=== PATIENT | male | born 1955 | race Hispanic/Latino ===

== ENCOUNTER → 2019-01-10 | Outpatient (CLI) | payer MEDICARE | END | disposition home or self-care (01) | LOC: RAH 10:54 | PROVIDERS: ATTEND Family Medicine | DX: M13.831 Other specified arthritis, right wrist (principal) | CPT/HCPCS: 73110 ==

== ENCOUNTER 2019-06-10 02:10 | Inpatient (IN) | payer MEDICARE ==
[~2019-06-10] VITALS: Ht 167.6 cm; Wt 84.0 kg
[2019-06-10] VITALS (18 sets, daily range): BP systolic 105–184; BP diastolic 62–122
[2019-06-10 02:52] LABS: BASOPHILS % (AUTO) 0.7 % (0.0-5.0); HEMATOCRIT 46.4 % (42-54); MEAN CORPUSCULAR HEMOGLOBIN 30.9 pg (27.0-33.0); MEAN CORPUSCULAR HGB CONC 34.2 g/dL (32.0-36.0); MEAN CORPUSCULAR VOLUME 90.4 fL (79-99); MONOCYTES % (AUTO) 10.7 % (3.0-13.0); NEUTROPHILS % (AUTO) 74.6 % (40.0-77.0); NUCLEATED RED BLOOD CELLS 0.1 % (0.0-0.19); PLATELET COUNT (AUTO) 197 K/uL (130-400); RED BLOOD CELL COUNT(AUTO) 5.13 MIL/uL (4.50-6.20); WHITE BLOOD COUNT (AUTO) 12.6 K/uL (4.8-10.8)
[2019-06-10 03:11] LABS: ALBUMIN 3.6 g/dL (3.5-5.0); BILIRUBIN,TOTAL 0.7 mg/dL (0.2-1.0); CREATININE 1.2 mg/dL (0.5-1.5); POTASSIUM 3.7 mmol/L (3.5-5.1); TOTAL PROTEIN, SERUM 8.1 g/dL (6.0-8.3)
[2019-06-10 03:14] LABS: APPEARANCE,URINE Clear (CLEAR); BILIRUBIN,URINE Negative (NEGATIVE); COLOR,URINE Yellow (YELLOW); GLUCOSE, URINE (UA) >=1000 mg/dL (NEGATIVE); KETONES,URINE Negative (NEGATIVE); LEUKOCYTE ESTERASE ,URINE Negative (NEGATIVE); NITRATE,URINE Negative (NEGATIVE); OCCULT BLOOD,URINE Negative (NEGATIVE); PH,URINE 6.5 (5.0-8.0); PROTEIN,URINE Negative (NEGATIVE)
[2019-06-10 03:19] LABS: INR 0.97 (0.85-1.15); PARTIAL THROMBOPLASTIN TIME 27.4 SEC (26.3-35.5); PROTHROMBIN TIME 10.2 SEC (9.6-11.6)
[2019-06-10] MEDS ORDERED: METRONIDAZOLE 500MG/100ML BAG 100 ML ONE (03:46)
[2019-06-10] MEDS ORDERED: LEVOFLOXACIN 500 MG/D5W 100 ML 100 ML ONE (03:46)
[2019-06-10] MEDS ORDERED: INSULIN HUMULIN R 100 UNIT/ML 3ML ONE (03:47)
[2019-06-10] MEDS ORDERED: SODIUM CHLORIDE 0.9% 1000ML 1,000 ML IV ONE (03:48)
[2019-06-10] MEDS ORDERED: KETOROLAC TROMETHAMINE 30MG/ML ONE (04:38)
[2019-06-10] MEDS ORDERED: ONDANSETRON HCL 4 MG/2 ML VIAL IVP PRN (05:45)
[2019-06-10] MEDS ORDERED: MORPHINE SULFATE 2 MG/ML 1ML SYG IVP PRN (05:45)
[2019-06-10] MEDS ORDERED: VANCOMYCIN PROTOCOL PER PHARMACY IV SCH (05:45)
[2019-06-10] MEDS ORDERED: VANCOMYCIN 1GM+NS 250ML 250 ML IV SCH (06:00)
[2019-06-10] MEDS: ZOSYN 3.375GM+NS 50ML 50 ML IV SCH ×2 (06:00→14:00)
[2019-06-10] MEDS ORDERED: ZOSYN 3.375GM+NS 50ML 50 ML IV ONE (07:15)
[2019-06-10] MEDS ORDERED: VANCOMYCIN 1GM+NS 250ML 250 ML IV ONE (08:07)
[2019-06-10] MEDS ORDERED: KETAMINE 50MG/ML SYRINGE 50 MG/ML DISP.SYRIN IV ONE (11:42)
[2019-06-10] MEDS ORDERED: PROPOFOL 10 MG/ML 20ML VIAL IV ONE (11:44)
[2019-06-10] MEDS ORDERED: MIDAZOLAM HCL 1 MG/ML 2ML VIAL ONE (11:56)
[2019-06-10] MEDS ORDERED: GLYCOPYRROLATE 1 MG/5 ML SYRINGE ONE (11:56)
[2019-06-10] MEDS ORDERED: ONDANSETRON HCL 4 MG/2 ML VIAL ONE (11:57)
[2019-06-10] MEDS ORDERED: LIDOCAINE 1%-EPI 1:100,000 20 ML VIAL IJ ONE (12:09)
[2019-06-10] MEDS: SODIUM CHLORIDE 0.9% 1000ML 1,000 ML IV SCH ×2 (12:24→12:30)
--- NOTE | 2019-06-10 13:05 | NUR ---
POST PROCEDURE RECEIVED PT FROM PACU, IN SEMI PIZANO'S POSITION, A&OX3, CALM COOPERATIVE AND DOES NOT APPEAR TO BE IN ANY DISTRESS NOR ANY NEURO DEFICITS PRESENT. PT DENIES PAIN, SOB, NAUSEA. DRESSING TO BUTTOCKS DRY AND INTACT. PT RESTING COMFORTABLY, CALL LIGHT WITHIN REACH, FAMILY AT BEDSIDE.
[2019-06-10] MEDS ORDERED: ACETAMINOPHEN 325 MG TAB ONE (15:24)
[2019-06-10] MEDS ORDERED: PHARMACY COMMUNICATION MISC SCH (15:45)
[2019-06-10] MEDS ORDERED: GABA-531 PO (15:53)
[2019-06-10] MEDS ORDERED: PIOG45TA64 PO (15:53)
[2019-06-10] MEDS ORDERED: CYCL10TA7 PO (15:53)
[2019-06-10] MEDS ORDERED: METF-446 PO (15:53)
[2019-06-10] MEDS ORDERED: DAPA5TAB PO (15:53)
[2019-06-10] MEDS ORDERED: CANA300T PO (15:53)
[2019-06-10] MEDS ORDERED: LISI10TA7 PO (15:53)
[2019-06-10] MEDS ORDERED: EMPA25TA PO (15:53)
[2019-06-10] MEDS ORDERED: MIDO5TAB PO (15:53)
[2019-06-10] MEDS ORDERED: TAMS-1 PO (15:53)
[2019-06-10] MEDS ORDERED: MELO-108 PO (15:53)
[2019-06-10] MEDS ORDERED: CLOP75TA32 PO (15:53)
[2019-06-10] MEDS ORDERED: GLIP5TAB11 PO (15:53)
[2019-06-10] MEDS ORDERED: COMPOUND IV REFRIGERATED 1 EACH IVSOLN MISC PRN (16:45)
[2019-06-10] MEDS ORDERED: ACETAMINOPHEN 325 MG TAB PO PRN ×2 (16:45)
[2019-06-10] MEDS: METFORMIN HCL 500 MG TABLET PO SCH (16:59)
--- NOTE | 2019-06-10 17:00 | NUR ---
TRANSFER TO 3RD FLOOR ROOM 309, REPORT CALLED TO NIC CROWE,
[2019-06-10] MEDS: INSULIN HUMULIN R 100 UNIT/ML 3ML SQ PRN (17:01)
--- NOTE | 2019-06-10 17:46 | NUR ---
PT TRANSFER UPDATE Pt transfer from 228 to 309, pt on the floor at 1745, pt s/p I&D by Dr. Rodrigues, Vitals stable, pt comfortable in bed, family at bedside, Nursing will continue to monitor.
[2019-06-10] MEDS ORDERED: GABAPENTIN 300 MG CAPSULE ONE (19:59)
[2019-06-10] MEDS: GABAPENTIN 300 MG CAPSULE PO SCH (20:59)
[2019-06-10] MEDS: VANCOMYCIN 1.25 GM in SODIUM CHLORIDE 0.9% 250 ML IV SCH (21:13)
[2019-06-11] MEDS: ZOSYN 3.375GM+NS 50ML 50 ML IV SCH ×3 (00:06→14:13)
[2019-06-11 03:56] VITALS: BP 117/61
[2019-06-11] MEDS: SODIUM CHLORIDE 0.9% 1000ML 1,000 ML IV SCH (05:43)
[2019-06-11 06:00] LABS: BASOPHILS % (AUTO) 0.2 % (0.0-5.0); EOSINOPHILS % (AUTO) 0.7 % (0.0-8.0); HEMATOCRIT 40.6 % (42-54); LYMPHOCYTES % (AUTO) 9.8 % (21.0-51.0); MEAN CORPUSCULAR HEMOGLOBIN 31.1 pg (27.0-33.0); MEAN CORPUSCULAR HGB CONC 34.6 g/dL (32.0-36.0); MONOCYTES % (AUTO) 8.5 % (3.0-13.0); NEUTROPHILS % (AUTO) 80.8 % (40.0-77.0); PLATELET COUNT (AUTO) 162 K/uL (130-400); RED BLOOD CELL COUNT(AUTO) 4.51 MIL/uL (4.50-6.20); RED CELL DISTRIBUTION WIDTH 12.9 % (11.0-15.5); WHITE BLOOD COUNT (AUTO) 12.4 K/uL (4.8-10.8)
[2019-06-11 06:07] LABS: HEMOGLOBIN A1C 11.5 % (4.0-6.0)
[2019-06-11 06:19] LABS: ALBUMIN 2.6 g/dL (3.5-5.0); BILIRUBIN,TOTAL 1.2 mg/dL (0.2-1.0); CREATININE 1.1 mg/dL (0.5-1.5); MAGNESIUM 1.3 mg/dL (1.80-2.40); PHOSPHORUS 2.5 mg/dL (2.5-4.9); POTASSIUM 3.8 mmol/L (3.5-5.1); TOTAL PROTEIN, SERUM 6.5 g/dL (6.0-8.3)
[2019-06-11 06:22] LABS: INR 1.09 (0.85-1.15); PARTIAL THROMBOPLASTIN TIME 29.1 SEC (26.3-35.5); PROTHROMBIN TIME 11.4 SEC (9.6-11.6)
[2019-06-11 06:56] LABS: B-TYPE NATRIURETIC PEPTIDE 96 pg/mL (0-100)
[2019-06-11 07:00] VITALS: BP 114/72
[2019-06-11] MEDS: VANCOMYCIN 1.25 GM in SODIUM CHLORIDE 0.9% 250 ML IV SCH ×2 (09:00→21:01)
[2019-06-11] MEDS: GABAPENTIN 300 MG CAPSULE PO SCH ×3 (09:52→21:02)
[2019-06-11] MEDS: LISINOPRIL 10 MG TABLET PO SCH (09:53)
[2019-06-11] MEDS: TAMSULOSIN HCL 0.4 MG CAP.ER.24H PO SCH (09:53)
[2019-06-11] MEDS: METFORMIN HCL 500 MG TABLET PO SCH ×2 (09:53→16:48)
[2019-06-11 11:00] VITALS: BP 138/74
[2019-06-11] MEDS ORDERED: POTASSIUM CHLORIDE 20MEQ/100ML 100 ML IV PRN (11:00)
[2019-06-11] MEDS ORDERED: POTASSIUM CHLORIDE 20 MEQ ERTAB PO PRN (11:00)
[2019-06-11] MEDS: MAGNESIUM 2GM PREMIX 50ML 50 ML IV PRN (11:19)
[2019-06-11] MEDS: INSULIN HUMULIN R 100 UNIT/ML 3ML SQ PRN ×3 (12:19→20:33)
[2019-06-11] MEDS: POTASSIUM CHLORIDE 10% ELIXIR 20 MEQ/15 ML UDCUP PO PRN ×2 (15:40→17:41)
[2019-06-11 16:00] VITALS: BP 138/75
--- NOTE | 2019-06-11 17:14 | NUR ---
INITIAL: Met with pt and spouse this afternoon to discuss dcp. Pt mentions that he lives w spouse, son and grandchild. Prior to admission he was using a walker for ambulation. Requires assistance w ADLs. Has provider services 20 1/2hr per week. Pt states that he feels safe and comfortable to return home at [facility]. states if needed she is willing to learn dressing changes. CM to continue to follow and wait for Md recommendations. Addendum: 06/11/19 at 1721 by ANDRÉS BALL CM Amended: Links added.
[2019-06-11 19:49] VITALS: BP 131/67
[2019-06-11] MEDS: INSULIN GLARGINE 100 UNITS/ML 10 ML VIAL SQ SCH (20:30)
[2019-06-11] MEDS ORDERED: SODIUM CHLORIDE 0.9% 250 ML IV ONE (20:56)
[2019-06-12] VITALS (7 sets, daily range): BP systolic 113–143; BP diastolic 74–97
[2019-06-12] MEDS: ZOSYN 3.375GM+NS 50ML 50 ML IV SCH ×4 (00:47→22:30)
[2019-06-12 05:11] LABS: BASOPHILS % (AUTO) 0.7 % (0.0-5.0); EOSINOPHILS % (AUTO) 1.9 % (0.0-8.0); HEMATOCRIT 37.6 % (42-54); LYMPHOCYTES % (AUTO) 17.4 % (21.0-51.0); MEAN CORPUSCULAR HEMOGLOBIN 31.9 pg (27.0-33.0); MEAN CORPUSCULAR HGB CONC 35.2 g/dL (32.0-36.0); MEAN CORPUSCULAR VOLUME 90.6 fL (79-99); MONOCYTES % (AUTO) 10.3 % (3.0-13.0); NEUTROPHILS % (AUTO) 69.7 % (40.0-77.0); PLATELET COUNT (AUTO) 173 K/uL (130-400); RED BLOOD CELL COUNT(AUTO) 4.14 MIL/uL (4.50-6.20); RED CELL DISTRIBUTION WIDTH 12.9 % (11.0-15.5); WHITE BLOOD COUNT (AUTO) 9.7 K/uL (4.8-10.8)
[2019-06-12 05:23] LABS: CREATININE 1.1 mg/dL (0.5-1.5); MAGNESIUM 1.6 mg/dL (1.80-2.40); POTASSIUM 3.8 mmol/L (3.5-5.1)
[2019-06-12] MEDS: INSULIN HUMULIN R 100 UNIT/ML 3ML SQ PRN ×3 (06:03→17:00)
[2019-06-12] MEDS: MAGNESIUM 2GM PREMIX 50ML 50 ML IV PRN (06:20)
[2019-06-12] MEDS: POTASSIUM CHLORIDE 10% ELIXIR 20 MEQ/15 ML UDCUP PO PRN (06:23)
[2019-06-12] MEDS ORDERED: MAGNESIUM 2GM PREMIX 50ML 50 ML IV PRN (08:30)
[2019-06-12] MEDS: GABAPENTIN 300 MG CAPSULE PO SCH ×3 (08:48→21:39)
[2019-06-12] MEDS: LISINOPRIL 10 MG TABLET PO SCH (08:48)
[2019-06-12] MEDS: VANCOMYCIN 1.25 GM in SODIUM CHLORIDE 0.9% 250 ML IV SCH ×2 (08:48→21:44)
[2019-06-12] MEDS: METFORMIN HCL 500 MG TABLET PO SCH ×2 (08:48→16:57)
[2019-06-12] MEDS: TAMSULOSIN HCL 0.4 MG CAP.ER.24H PO SCH (08:48)
--- NOTE | 2019-06-12 10:13 | NUR ---
DYSPHAGIA EVAL COMPLETED. -S/S OF ASPIRATION, DIFFICULTY TAKING PILLS. RECOMMEND REGULAR TEXTURE, THIN LIQUIDS; PILLS WHOLE WITH THIN LIQUIDS USING CHIN TUCK. Addendum: 06/12/19 at 1015 by BREE AYALA, [facility] Amended: Links added.
--- NOTE | 2019-06-12 14:53 | NUR ---
[facility] consult Spoke with patient's nurse, Joey CROWE, regarding wound care consult for surgeon (Dr. Rodrigues) not for C. May re-consult [facility] if needed.
--- NOTE | 2019-06-12 15:00 | NUR ---
REFERRAL TO [facility] REQUESTED / ORDER AND PT REQUEST PKT SENT,PASSR SENT, DIONISIO CALLED, CAME TO EVALUATE Addendum: 06/14/19 at 1801 by ELSA TUCKER RN CM Amended: Links added.
[2019-06-12] MEDS: INSULIN GLARGINE 100 UNITS/ML 10 ML VIAL SQ SCH (21:34)
[2019-06-12] MEDS: INSULIN HUMULIN R 100 UNIT/ML 3ML SQ SCH (21:35)
[2019-06-12] MEDS ORDERED: SODIUM CHLORIDE 0.9% 250 ML IV ONE (22:17)
[2019-06-13 03:50] VITALS: BP 109/63
[2019-06-13] MEDS: ZOSYN 3.375GM+NS 50ML 50 ML IV SCH ×2 (05:27→14:11)
[2019-06-13] MEDS: INSULIN HUMULIN R 100 UNIT/ML 3ML SQ SCH ×3 (06:54→16:30)
[2019-06-13 07:00] VITALS: BP 136/80
[2019-06-13] MEDS: METFORMIN HCL 500 MG TABLET PO SCH ×2 (09:09→17:07)
[2019-06-13] MEDS: TAMSULOSIN HCL 0.4 MG CAP.ER.24H PO SCH (09:10)
[2019-06-13] MEDS: GABAPENTIN 300 MG CAPSULE PO SCH ×2 (09:10→14:11)
[2019-06-13] MEDS: LISINOPRIL 10 MG TABLET PO SCH (09:10)
[2019-06-13] MEDS: VANCOMYCIN 1.25 GM in SODIUM CHLORIDE 0.9% 250 ML IV SCH (09:17)
[2019-06-13 11:00] VITALS: BP 132/77
--- NOTE | 2019-06-13 13:35 | NUR ---
DR BAUM AT BEDSIDE "NO SNF' PER DR. BAUM, REFERRAL CANCELLED, PT AMRITA MIN, FOR HEMAL AWARE Addendum: 06/14/19 at 1803 by ELSA TUCKER RN CM Amended: Links added.
[2019-06-13 16:00] VITALS: BP 134/78
[2019-06-13] MEDS ORDERED: CEPH750C9 PO (16:51)
--- NOTE | 2019-06-13 18:40 | NUR ---
WOUND CARE EDUCATION WAS PERFORMED BY DEMONSTRATION AND THE WAS ENCOURAGED TO RETURN DEMONSTRATION AND SHE DID IT WITHOUT DIFFICULTY. AND SHE VERBALIZED CLEAR UNDERSTANDING WITH CONFIDENCE THAT SHE CAN PERFORM THE TASK AT HOME. IV ACCESSES WERE REMOVED WITHOUT COMPLICATION. ALL DISCHARGE INSTRUCTIONS WERE GIVEN TO THE PATIENT AND HIS AT THE BEDSIDE WHO VOICED UNDERSTANDING. PATIENT LEFT THE UNIT IN STABLE CONDITION VIA WHEELCHAIR IN CARE OF SPOUSE.
== END 2019-06-13 19:00 | disposition home or self-care (01) | DRG 854 ==
LOC: EDH 02:10 → EDHIP 05:15 → OBSVTOIN 05:15 → 2DH 13:42 → 3BH 17:30
PROVIDERS: ADMIT Internal Medicine; ATTEND Internal Medicine
PROC: 0D9P0ZZ Drainage of Rectum, Open Approach (ICD-10-PCS; principal; 2019-06-10 12:00)
DX: A41.9 Sepsis, unspecified organism (principal); K61.1 Rectal abscess; E11.9 Type 2 diabetes mellitus without complications; E66.9 Obesity, unspecified; I10 Essential (primary) hypertension; I25.10 Atherosclerotic heart disease of native coronary artery without angina pectoris; N40.0 Benign prostatic hyperplasia without lower urinary tract symptoms; Z79.82 Long term (current) use of aspirin; Z79.899 Other long term (current) drug therapy; Z86.73 Personal history of transient ischemic attack (TIA), and cerebral infarction without residual deficits; Z91.19 Patient's noncompliance with other medical treatment and regimen; Z68.29 Body mass index [BMI] 29.0-29.9, adult; I25.2 Old myocardial infarction
CPT/HCPCS: 36415; 72192; 76870; 80048; 80053; 80061; 80202; 81003; 82550; 82948; 83036; 83605; 83735; 83880; 84100; 84484; 85025; 85610; 85730; 87040; 87070; 87076; 87205; 87880; 92610; 93005; A6266; G0378; J1815; J1885; J1956; J2250; J2405; J2543; J2704; J3370; J3475; J3490; J7030

== ENCOUNTER → 2019-08-15 | Outpatient (CLI) | payer OTHER ==
[~2019-08-15] MED LIST: CANA300T PO; CEPH750C9 PO; CLOP75TA32 PO; CYCL10TA7 PO; DAPA5TAB PO; EMPA25TA PO; GABA-531 PO; GLIP5TAB11 PO; LISI10TA7 PO; MELO-108 PO; METF-446 PO; PIOG45TA64 PO; REGADENOSON 0.4 MG/5 ML PF SYG IVP SCH; TAMS-1 PO
== END | disposition home or self-care (01) ==
LOC: CANPRECLI → SHCH 09:55
PROVIDERS: ATTEND Internal Medicine Cardiovascular Disease
DX: I25.10 Atherosclerotic heart disease of native coronary artery without angina pectoris (principal)
CPT/HCPCS: 78452; 93017; 96374; A9500 ×2

== ENCOUNTER → 2019-08-16 | Outpatient (CLI) | payer OTHER ==
[~2019-08-16] MED LIST changes: -REGADENOSON 0.4 MG/5 ML PF SYG IVP SCH
--- NOTE | 2019-08-16 11:00 | NUR ---
MBSS COMPLETED. SHALLOW TRANSIENT PENETRATION WITH THIN LIQUIDS VIA CONSECUTIVE CUP SIP. RECOMMEND REGULAR TEXTURE, THIN LIQUIDS; PILLS WHOLE WITH LIQUIDS. RECOMMENDATIONS: 1. GI CONSULT; PLEASE CONSIDER UPPER GI. Addendum: 08/16/19 at 1325 by BREE AYALA, [facility] Amended: Links added.
== END | disposition home or self-care (01) ==
LOC: RAH 10:34
PROVIDERS: ATTEND Family Medicine
DX: I69.391 Dysphagia following cerebral infarction (principal); K21.9 Gastro-esophageal reflux disease without esophagitis
CPT/HCPCS: 74230; 92611

== ENCOUNTER → 2020-03-13 | Outpatient (CLI) | payer OTHER | END | disposition home or self-care (01) | LOC: RAH 10:51 | PROVIDERS: ATTEND Internal Medicine Gastroenterology | DX: K31.84 Gastroparesis (principal) | CPT/HCPCS: 78264; A9541 ==

== ENCOUNTER → 2020-12-30 | Outpatient (CLI) | payer OTHER ==
[~2020-12-30] MED LIST changes: +LISI10TA24 PO; -LISI10TA7 PO
== END | disposition home or self-care (01) ==
LOC: SHCH 15:55
PROVIDERS: ATTEND Internal Medicine Cardiovascular Disease
DX: I51.7 Cardiomegaly (principal)
CPT/HCPCS: 93306; 93356

== ENCOUNTER → 2021-01-02 | Outpatient (CLI) | payer OTHER ==
[~2021-01-02] VITALS: Ht 172.7 cm; Wt 79.4 kg
[~2021-01-02] MED LIST changes: +REGADENOSON 0.4 MG/5 ML PF SYG IVP SCH
== END | disposition home or self-care (01) ==
LOC: SHCH 10:00
PROVIDERS: ATTEND Internal Medicine Cardiovascular Disease
DX: R06.00 Dyspnea, unspecified (principal); I25.10 Atherosclerotic heart disease of native coronary artery without angina pectoris
CPT/HCPCS: 78452; 93017; 96374; A9500 ×2

== ENCOUNTER 2021-08-26 15:01 | Emergency (ER) | payer OTHER ==
[~2021-08-26] VITALS: Ht 165.1 cm; Wt 80.7 kg
[~2021-08-26 15:01] MED LIST changes: +CYCL-309 PO; -CYCL10TA7 PO; -REGADENOSON 0.4 MG/5 ML PF SYG IVP SCH
[2021-08-26] MEDS ORDERED: ACETAMINOPHEN 500 MG TABLET PO ONE (15:30)
[2021-08-26 15:42] LABS: BASOPHILS % (AUTO) 0.7 % (0.0-5.0); EOSINOPHILS % (AUTO) 1.8 % (0.0-8.0); HEMATOCRIT 45.4 % (42-54); LYMPHOCYTES % (AUTO) 23.7 % (21.0-51.0); MEAN CORPUSCULAR HEMOGLOBIN 30.4 pg (27.0-33.0); MEAN CORPUSCULAR HGB CONC 34.6 g/dL (32.0-36.0); MONOCYTES % (AUTO) 8.6 % (3.0-13.0); PLATELET COUNT (AUTO) 232 K/uL (130-400); RED BLOOD CELL COUNT(AUTO) 5.16 MIL/uL (4.50-6.20); RED CELL DISTRIBUTION WIDTH 12.9 % (11.0-15.5); WHITE BLOOD COUNT (AUTO) 8.7 K/uL (4.8-10.8)
[2021-08-26 15:53] LABS: APPEARANCE,URINE Clear (CLEAR); BILIRUBIN,URINE Negative (NEGATIVE); COLOR,URINE Yellow (YELLOW); GLUCOSE, URINE (UA) Negative (NEGATIVE); KETONES,URINE Negative (NEGATIVE); LEUKOCYTE ESTERASE ,URINE Negative (NEGATIVE); NITRATE,URINE Negative (NEGATIVE); OCCULT BLOOD,URINE Negative (NEGATIVE); PH,URINE 5.5 (5.0-8.0); PROTEIN,URINE Trace mg/dL (NEGATIVE)
[2021-08-26 16:01] LABS: BACTERIA,URINE None Seen /HPF (None Seen); MUCUS,URINE None Seen LPF (None Seen); RBC,URINE 0-1 /HPF (0-1); SQUAMOUS EPITHELIAL CELL,UR 0-2 /HPF (0-2); WBC,URINE 0-1 /HPF (0-1)
[2021-08-26 16:02] LABS: CARBON DIOXIDE 33 mmol/L (21-32); CHLORIDE 101 mmol/L (101-111); CREATININE 1.1 mg/dL (0.5-1.5); GLOMERULAR FILTR. RATE CALC 72 mL/min (>60); GLUCOSE,RANDOM 122 mg/dL (70-105); POTASSIUM 4.3 mmol/L (3.5-5.1); SODIUM SERUM 139 mmol/L (136-145); UREA NITROGEN, BLOOD 14 mg/dL (7-18)
[2021-08-26 16:14] LABS: ALANINE AMINOTRANSFERASE 34 U/L (12-78); ALBUMIN 3.9 g/dL (3.5-5.0); ASPARTATE AMINOTRANSFERASE 29 U/L (10-37); BILIRUBIN,TOTAL 0.5 mg/dL (0.2-1.0); TOTAL PROTEIN, SERUM 8.8 g/dL (6.0-8.3)
[2021-08-26 16:28] LABS: CRP QUANTITATIVE < 2.00 mg/L (0.00-9.0)
[2021-08-26 18:22] VITALS: BP 163/95
[2021-08-26] MEDS ORDERED: CYCLOBENZAPRINE HCL 10 MG TABLET ONE (18:50)
[2021-08-26] MEDS ORDERED: CYCL10TA16 PO (18:51)
[2021-08-26] MEDS ORDERED: ACET-2247 PO (18:52)
[2021-08-26] MEDS ORDERED: DEXAMETHASONE 4 MG TAB PO SCH (19:00)
[2021-08-26] MEDS ORDERED: CYCLOBENZAPRINE HCL 10 MG TABLET PO ONE (19:00)
== END 2021-08-26 19:05 | disposition home or self-care (01) ==
LOC: EDH 15:01
DX: M62.421 Contracture of muscle, right upper arm (principal); M62.838 Other muscle spasm; R51.9 Headache, unspecified; E11.9 Type 2 diabetes mellitus without complications; I25.10 Atherosclerotic heart disease of native coronary artery without angina pectoris
CPT/HCPCS: 36415; 70450; 71045; 72125; 72141; 80053; 81001; 82948; 84484; 85025; 86140

== ENCOUNTER 2021-12-25 12:40 | Observation (INO) | payer OTHER ==
[~2021-12-25] VITALS: Ht 165.1 cm; Wt 79.7 kg
[~2021-12-25 12:40] MED LIST changes: +ACET-2247 PO; +CYCL10TA16 PO
[2021-12-25 13:07] LABS: BASOPHILS % (AUTO) 0.6 % (0.0-5.0); EOSINOPHILS % (AUTO) 1.6 % (0.0-8.0); LYMPHOCYTES % (AUTO) 22.3 % (21.0-51.0); MEAN CORPUSCULAR HGB CONC 34.1 g/dL (32.0-36.0); MONOCYTES % (AUTO) 8.7 % (3.0-13.0); NEUTROPHILS % (AUTO) 66.6 % (40.0-77.0); PLATELET COUNT (AUTO) 202 K/uL (130-400); RED BLOOD CELL COUNT(AUTO) 5.23 MIL/uL (4.50-6.20); RED CELL DISTRIBUTION WIDTH 13.2 % (11.0-15.5); WHITE BLOOD COUNT (AUTO) 8.4 K/uL (4.8-10.8)
[2021-12-25] MEDS ORDERED: ASPIRIN 81MG CHEW TAB ONE (13:10)
[2021-12-25] MEDS ORDERED: NITROGLYCERIN 1GM OINT 1 INCH/1GM TD ONE (13:10)
[2021-12-25 13:16] LABS: CREATININE 1.1 mg/dL (0.5-1.5); POTASSIUM 4.1 mmol/L (3.5-5.1)
[2021-12-25 13:21] LABS: ALBUMIN 3.6 g/dL (3.5-5.0); BILIRUBIN,TOTAL 0.5 mg/dL (0.2-1.0); TOTAL PROTEIN, SERUM 7.8 g/dL (6.0-8.3)
[2021-12-25] MEDS ORDERED: ASPIRIN 81MG CHEW TAB PO SCH (13:30)
[2021-12-25] MEDS ORDERED: NITROGLYCERIN 1GM OINT 1 INCH/1GM TD SCH (13:30)
[2021-12-25 13:42] LABS: APPEARANCE,URINE Clear (CLEAR); BILIRUBIN,URINE Negative (NEGATIVE); COLOR,URINE Yellow (YELLOW); GLUCOSE, URINE (UA) Negative (NEGATIVE); KETONES,URINE Negative (NEGATIVE); LEUKOCYTE ESTERASE ,URINE Negative (NEGATIVE); NITRATE,URINE Negative (NEGATIVE); OCCULT BLOOD,URINE Negative (NEGATIVE); PROTEIN,URINE Negative (NEGATIVE)
[2021-12-25] MEDS ORDERED: ACETAMINOPHEN 325 MG TAB PO PRN (16:30)
[2021-12-25] MEDS ORDERED: ACETAMINOPHEN 650 MG SUPPOSITORY RC PRN (16:30)
[2021-12-25] MEDS ORDERED: ONDANSETRON 4MG INJ IVP PRN (16:30)
[2021-12-25] MEDS ORDERED: CLONIDINE HCL 0.1 MG TABLET PO PRN (16:30)
[2021-12-25] MEDS ORDERED: LACTULOSE 20 GM/30 ML UDCUP PO PRN (16:30)
[2021-12-25] MEDS: INSULIN HUMULIN R 100 UNIT/ML 3ML SQ SCH ×2 (16:30→21:00)
[2021-12-25 16:55] LABS: AMPHET/METH SCREEN,URINE NEGATIVE (NEGATIVE); BARBITURATE SCREEN, URINE NEGATIVE (NEGATIVE); BENZODIAZEPINES SCREEN,URINE NEGATIVE (NEGATIVE); CANNABINOID SCREEN,URINE NEGATIVE (NEGATIVE); COCAINE SCREEN,URINE NEGATIVE (NEGATIVE); OPIATE SCREEN,URINE NEGATIVE (NEGATIVE); PHENCYCLIDINE SCREEN,URINE NEGATIVE (NEGATIVE)
[2021-12-25 16:58] LABS: HEMOGLOBIN A1C 7.1 % (4.0-6.0)
[2021-12-25] MEDS: IPRATROPIUM/ALBUTEROL SULFATE 3 ML SOLUTION IH SCH ×2 (19:27→23:32)
[2021-12-25 23:15] VITALS: BP 144/74
[2021-12-25] MEDS: MORPHINE 2 MG SYG IVP PRN (23:40)
[2021-12-26] MEDS: IPRATROPIUM/ALBUTEROL SULFATE 3 ML SOLUTION IH SCH ×3 (02:33→11:13)
[2021-12-26] MEDS: MORPHINE 2 MG SYG IVP PRN (04:28)
[2021-12-26 05:02] VITALS: BP 127/70
[2021-12-26 05:20] LABS: BASOPHILS % (AUTO) 0.5 % (0.0-5.0); HEMATOCRIT 42.1 % (42-54); LYMPHOCYTES % (AUTO) 15.2 % (21.0-51.0); MEAN CORPUSCULAR HGB CONC 34.2 g/dL (32.0-36.0); MEAN CORPUSCULAR VOLUME 87.7 fL (79-99); MONOCYTES % (AUTO) 8.4 % (3.0-13.0); NEUTROPHILS % (AUTO) 74.6 % (40.0-77.0); PLATELET COUNT (AUTO) 187 K/uL (130-400); RED CELL DISTRIBUTION WIDTH 13.2 % (11.0-15.5); WHITE BLOOD COUNT (AUTO) 11.9 K/uL (4.8-10.8)
[2021-12-26 05:47] LABS: B-TYPE NATRIURETIC PEPTIDE 29 pg/mL (0-100)
[2021-12-26 05:50] LABS: MAGNESIUM 1.8 mg/dL (1.80-2.40); PHOSPHORUS 4.4 mg/dL (2.5-4.9); POTASSIUM 3.8 mmol/L (3.5-5.1)
[2021-12-26] MEDS: INSULIN HUMULIN R 100 UNIT/ML 3ML SQ SCH ×2 (06:22→10:59)
[2021-12-26 08:00] VITALS: BP 120/73
[2021-12-26] MEDS ORDERED: PANTOPRAZOLE 40 MG TAB DR PO SCH (09:00)
[2021-12-26] MEDS ORDERED: LISINOPRIL 20 MG TABLET PO SCH (09:00)
[2021-12-26] MEDS ORDERED: ENOXAPARIN SODIUM 40 MG/0.4 ML SYRINGE SQ SCH (09:00)
[2021-12-26] MEDS ORDERED: POLYETHYLENE GLYCOL 3350 17 GM POWD.PACK PO SCH (09:00)
[2021-12-26] MEDS ORDERED: ASPIRIN 81MG CHEW TAB PO SCH (09:00)
[2021-12-26] MEDS ORDERED: LISI20TA24 PO (09:43)
[2021-12-26] MEDS ORDERED: CLON0.1T PO (09:43)
[2021-12-26] MEDS ORDERED: SIMV-43 PO (09:43)
[2021-12-26] MEDS ORDERED: ASPI-1005 PO (09:43)
[2021-12-26] MEDS ORDERED: ALBUHFA IH (09:45)
[2021-12-26 12:00] VITALS: BP 139/71
[2021-12-26] MEDS ORDERED: ATORVASTATIN 40 MG TABLET PO SCH (21:00)
== END 2021-12-26 14:15 | disposition home or self-care (01) ==
LOC: EDH 12:40 → EDHIP 16:26 → 3AH 22:49
PROVIDERS: ADMIT Internal Medicine; ATTEND Internal Medicine
DX: I25.110 Atherosclerotic heart disease of native coronary artery with unstable angina pectoris (principal); R07.89 Other chest pain; R06.02 Shortness of breath; E11.9 Type 2 diabetes mellitus without complications; G47.30 Sleep apnea, unspecified; I10 Essential (primary) hypertension; Z79.82 Long term (current) use of aspirin; Z79.899 Other long term (current) drug therapy; Z86.73 Personal history of transient ischemic attack (TIA), and cerebral infarction without residual deficits
CPT/HCPCS: 36415 ×2; 71045; 80048; 80053; 80305; 81003; 82550 ×3; 82948 ×4; 83036; 83735; 83874 ×3; 83880; 84100; 84484 ×5; 85025 ×2; 85378; 93005; 94640 ×5; 94664; 96372; 96374; 96376; 99285; G0378 ×20; J1650

== ENCOUNTER 2022-04-21 06:51 | Emergency (ER) | payer OTHER ==
[~2022-04-21] VITALS: Ht 165.1 cm; Wt 79.4 kg
[~2022-04-21 06:51] MED LIST changes: -ACET-2247 PO; +ALBUHFA IH; +ASPI-1005 PO; -CANA300T PO; -CEPH750C9 PO; +CLON0.1T PO; -CLOP75TA32 PO; -CYCL-309 PO; -CYCL10TA16 PO; -DAPA5TAB PO; -EMPA25TA PO; -GABA-531 PO; -GLIP5TAB11 PO; -LISI10TA24 PO; +LISI20TA24 PO; -MELO-108 PO; -METF-446 PO; -PIOG45TA64 PO; +SIMV-43 PO; -TAMS-1 PO
[2022-04-21] MEDS ORDERED: IOHEXOL 350 MG/ML 100ML INFUS..BTL IV ONE (07:25)
[2022-04-21 07:39] LABS: BASOPHILS % (AUTO) 0.6 % (0.0-5.0); EOSINOPHILS % (AUTO) 1.4 % (0.0-8.0); HEMATOCRIT 45.3 % (42-54); LYMPHOCYTES % (AUTO) 17.2 % (21.0-51.0); MEAN CORPUSCULAR HEMOGLOBIN 29.9 pg (27.0-33.0); MONOCYTES % (AUTO) 10.8 % (3.0-13.0); NEUTROPHILS % (AUTO) 69.6 % (40.0-77.0); PLATELET COUNT (AUTO) 197 K/uL (130-400); RED BLOOD CELL COUNT(AUTO) 5.15 MIL/uL (4.50-6.20); RED CELL DISTRIBUTION WIDTH 13.2 % (11.0-15.5); WHITE BLOOD COUNT (AUTO) 8.4 K/uL (4.8-10.8)
[2022-04-21 08:10] LABS: ALBUMIN 3.5 g/dL (3.5-5.0); CREATININE 1.1 mg/dL (0.5-1.5); POTASSIUM 4.2 mmol/L (3.5-5.1); TOTAL PROTEIN, SERUM 7.4 g/dL (6.0-8.3)
[2022-04-21 08:21] LABS: B-TYPE NATRIURETIC PEPTIDE 6 pg/mL (0-100)
[2022-04-21] MEDS ORDERED: DEXTROSE 50%-WATER 50 ML DISP.SYRIN IV ONE (08:53)
[2022-04-21 10:16] LABS: APPEARANCE,URINE CLEAR (CLEAR); BILIRUBIN,URINE NEGATIVE (NEGATIVE); COLOR,URINE YELLOW (YELLOW); GLUCOSE, URINE (UA) 250 mg/dL (NEGATIVE); KETONES,URINE NEGATIVE (NEGATIVE); LEUKOCYTE ESTERASE ,URINE NEGATIVE (NEGATIVE); NITRATE,URINE NEGATIVE (NEGATIVE); OCCULT BLOOD,URINE NEGATIVE (NEGATIVE); PH,URINE 6.5 (5.0-8.0); PROTEIN,URINE NEGATIVE (NEGATIVE)
[2022-04-21 10:24] LABS: AMPHET/METH SCREEN,URINE NEGATIVE (NEGATIVE); BARBITURATE SCREEN, URINE NEGATIVE (NEGATIVE); BENZODIAZEPINES SCREEN,URINE NEGATIVE (NEGATIVE); CANNABINOID SCREEN,URINE NEGATIVE (NEGATIVE); COCAINE SCREEN,URINE NEGATIVE (NEGATIVE); OPIATE SCREEN,URINE NEGATIVE (NEGATIVE); PHENCYCLIDINE SCREEN,URINE NEGATIVE (NEGATIVE)
[2022-04-21 10:26] LABS: BACTERIA,URINE None Seen /HPF (None Seen); RBC,URINE 0-1 /HPF (0-1); WBC,URINE 0-1 /HPF (0-1)
[2022-04-21 10:27] LABS: SQUAMOUS EPITHELIAL CELL,UR 0-2 /HPF (0-2)
[2022-04-21 13:44] VITALS: BP 158/75
== END 2022-04-21 13:46 | disposition home or self-care (01) ==
LOC: EDH 06:51
DX: E11.649 Type 2 diabetes mellitus with hypoglycemia without coma (principal); R53.1 Weakness; Z88.8 Allergy status to other drugs, medicaments and biological substances; Z79.899 Other long term (current) drug therapy; Z79.82 Long term (current) use of aspirin; Z86.73 Personal history of transient ischemic attack (TIA), and cerebral infarction without residual deficits; Z98.890 Other specified postprocedural states
CPT/HCPCS: 99291; 70496; 70551; 96374; 71045; 84484; 80053; 83880; 80305; 85025; 82948; 36415; 70498; 93005; 70450; 81001; J7070; Q9967

== ENCOUNTER → 2023-06-17 | Outpatient (CLI) | payer OTHER ==
[2023-06-17 16:31] LABS: CREATININE 1.1 mg/dL (0.5-1.5); POTASSIUM 3.9 mmol/L (3.5-5.1)
== END | disposition home or self-care (01) ==
LOC: LAB 15:51
PROVIDERS: ATTEND Internal Medicine Cardiovascular Disease
DX: I10 Essential (primary) hypertension (principal); I65.22 Occlusion and stenosis of left carotid artery
CPT/HCPCS: 36415; 80048

== ENCOUNTER → 2023-06-23 | Outpatient (CLI) | payer OTHER ==
[~2023-06-23] MED LIST changes: +IOHEXOL 350 MG/ML 100ML INFUS..BTL IV ONE; +METOPROLOL TARTRATE 1 MG/ML 5ML VIAL IV ONE
== END | disposition home or self-care (01) ==
LOC: RAH 08:56
PROVIDERS: ATTEND Internal Medicine Cardiovascular Disease
DX: I20.9 Angina pectoris, unspecified (principal)
CPT/HCPCS: 75574; J3490 ×2; Q9967

== ENCOUNTER → 2024-02-01 | Outpatient (CLI) | payer OTHER ==
[~2024-02-01] MED LIST changes: -IOHEXOL 350 MG/ML 100ML INFUS..BTL IV ONE; -METOPROLOL TARTRATE 1 MG/ML 5ML VIAL IV ONE
[2024-02-01] MEDS: REGADENOSON 0.4 MG/5 ML PF SYG IVP ONE (13:16)
== END | disposition home or self-care (01) ==
LOC: SHCH 07:52
PROVIDERS: ATTEND Internal Medicine Cardiovascular Disease
DX: I25.10 Atherosclerotic heart disease of native coronary artery without angina pectoris (principal)
CPT/HCPCS: 78452; 93017; J2785; A9500 ×2; 96374